=== PATIENT | female | born 2000 | race Hispanic/Latino ===

== ENCOUNTER 2019-10-25 06:17 | Day surgery (SDC) | payer BC ==
[2019-10-23 09:51] LABS: Absolute Lymphocytes (CBC) 3.1 K/uL (0.7-4.9); Basophils % 0.5 % (0-1.3); Hematocrit 41.1 % (36.0-45.0); Lymphocytes % 35.6 % (15.3-44.8); MPV 7.2 fL (7.6-11.3); RBC Red Blood Cell Count 5.02 M/uL (3.86-4.86)
[2019-10-23 10:05] LABS: BUN Blood Urea Nitrogen 10 mg/dL (7-18); Bicarbonate 29 mmol/L (21-32); Glucose Level 94 mg/dL (74-106); Potassium 3.9 mmol/L (3.5-5.1); Sodium Level 140 mmol/L (136-145)
[2019-10-25] MEDS ORDERED: Ringers Lactate 1,000 ML IV ONE (06:42)
[2019-10-25 06:43] LABS: Specific Gravity 1.015 (1.005-1.030)
[2019-10-25] MEDS ORDERED: BUPIVACA 0.5%/EPI 0.0005%/PF 30 ML VIAL ONE (07:06)
[2019-10-25] MEDS ORDERED: BUPIVACAINE 0.5% PF 10 ML VIAL ONE ×2 (07:14→07:31)
[2019-10-25] MEDS ORDERED: MIDAZOLAM HCL 2 MG/2 ML INJ ONE (07:46)
[2019-10-25] MEDS ORDERED: PROPOFOL 200 MG/20 ML VIAL IV ONE (07:46)
[2019-10-25] MEDS ORDERED: FENTANYL CITR 100 MCG/2 ML ONE (07:47)
[2019-10-25] MEDS ORDERED: LIDOCAINE 2% MPF 5 ML VIAL ONE (07:47)
[2019-10-25] MEDS: BUPIVACA 0.5%/EPI 0.0005%/PF 10 ML VIAL ONE ×2 (07:52→08:27)
[2019-10-25] MEDS ORDERED: CEFAZOLIN/SWI 1gm 1 GM/10 ML SYR ONE (07:59)
[2019-10-25] MEDS ORDERED: ONDANSETRON 4 MG/2 ML VIAL ONE (08:13)
--- NOTE | 2019-10-25 09:08 | P.BOP ---
Preoperative diagnosis: Right upper arm subQ mass Postoperative diagnosis: same Primary procedure: Excisional biopsy of Right upper arm subQ mass 5 x 3 cm Bridge Inspector: THEODORE HICKMAN ([employer]) Estimated blood loss: <10cc Specimen: mass Findings: mass Anesthesia: General Complications: None Transferred to: Recovery Room Condition: Good
[2019-10-25 09:27] VITALS: O2SAT 100
[2019-10-25 09:50] VITALS: BP 113/69; TEMP 98.4
[2019-10-25] MEDS ORDERED: CODEINE 30MG/APAP 300MG TAB ONE (10:07)
--- NOTE | 2019-10-25 22:47 | OP ---
Date of Procedure: 10/25/2019 Surgeon: Oswaldo Price MD [employer] Worker: Nivia Medellin. Preoperative Diagnosis: Right upper arm tender, subcutaneous mass. Postoperative Diagnosis: Right upper arm tender, subcutaneous mass. Procedure: Excisional biopsy, right upper arm tender subcutaneous mass 5 x 3 cm. Anesthesia: General plus local. Specimen: Fatty tumor. Indications: This is a case of a 19-year-old patient, who comes to us with a tender palpable mass in the right upper arm. She wants that excised. Benefits, alternatives, and risks of excision fully e xplained, which include but are not limited to infection, bleeding, damage to adjacent structures, an esthesia complication, nonhealing wound, chronic pain, chronic numbness, OK, and even . She als o understands this may not relieve her symptoms. She may need more than one surgical intervention. She understood, signed a consent. Patient and me marked the area of concern this morning in the day surgery area. Description Of Procedure: Patient was brought to the operating room, placed in supine position. Ane sthesia was done without complication. Right arm was prepped and draped in a sterile fashion after a nesthesia was induced. A time-out was called. An incision was made along the area with a palpable m asses. Incision was carried down to deep subcutaneous tissue. We find this fatty tumor present. Do es not penetrate the fascia or the muscle. The mass was completely excised. The area was irrigated. Since this was deep, we have to close this in layers with 3-0 chromic layers and then more superfic ial subcuticular closure with Steri-Strips on top. Irrigation and hemostasis were obtained before cl osure, also local anesthetic. Patient was sent to recovery in stable condition. Diagnosis: Tender right upper arm subcutaneous mass. Procedure is excision biopsy of a tender right upper arm subcutaneous mass. Disposition: Home. Activity: As tolerated. No heavy lifting. Followup: Follow up in my office in 1 week. Call for appointment [phone]. Keep the area dry for 4 8 hours, then may shower. Keep Steri-Strip intact. Medications: Tylenol No. 3 q.4 hours p.r.n. pain. HM/PRETTY Voice ID: [id number] Report ID: [id number]
== END 2019-10-25 10:37 | disposition home or self-care (01) ==
LOC: OR 06:17
PROVIDERS: ATTEND Surgery
PROC: 0JBD0ZZ Excision of Right Upper Arm Subcutaneous Tissue and Fascia, Open Approach (ICD-10-PCS; principal; 2019-10-25 08:00)
DX: D17.21 Benign lipomatous neoplasm of skin and subcutaneous tissue of right arm (principal)
CPT/HCPCS: 85025; 80048; 36415; 84703; 81025; 88304; 11406; J2704; J2250; J3010; J0690; J7120; J2405; 88305